=== PATIENT | male | born 1960 | race African-American/Black ===

== ENCOUNTER → 2020-05-18 | Outpatient (CLI) | payer OTHER ==
--- NOTE | 2020-05-18 10:59 | RAD ---
EXAM: Left lower extremity venous Doppler sonogram. HISTORY: Pain and swelling. TECHNIQUE: Kirby scale and color Doppler sonographic evaluation of the left lower extremity veins with spectral waveform analysis was performed. FINDINGS: There is normal color flow, normal compressibility and there are normal spectral waveforms in the common femoral, superficial femoral, popliteal, posterior tibial and greater saphenous veins. There is a complex fluid collection within the left popliteal fossa measuring 5.9 x 2.6 x 2.5 cm. IMPRESSION: 1. No Doppler evidence of lower extremity deep venous thrombosis. 2. Complex Giron's cyst containing internal debris or hemorrhage measuring 5.9 cm. Electronically signed by: Yuni Orona MD (05/18/2020 10:57 AM) [id number]
== END ==
LOC: US 10:03
PROVIDERS: ATTEND Family Medicine
DX: M71.22 Synovial cyst of popliteal space [Baker], left knee (principal); M79.89 Other specified soft tissue disorders; R60.0 Localized edema
CPT/HCPCS: 93971